=== PATIENT | female | born 1995 | race Caucasian/White ===

== ENCOUNTER 2023-08-22 08:20 | Emergency (ER) | payer SELFPAY ==
[~2023-08-22] VITALS: Ht 152.4 cm; Wt 70.8 kg
[2023-08-22 08:48] VITALS: BP 97/66; PULSE 64; RESP 18; TEMP 98; O2SAT 98
[2023-08-22] MEDS: LIDOCAINE MPF 1% 10 MG/ML VIAL INJ ONE (09:47)
[2023-08-22] MEDS ORDERED: DOXY-745 PO (10:29)
[2023-08-22] MEDS ORDERED: BACTO TP (10:29)
[2023-08-22] MEDS ORDERED: IBUP-2213 PO (10:29)
[2023-08-22] MEDS ORDERED: CHLO3800 TP (10:29)
[2023-08-22] MEDS: BACITRACIN OINT 500 UNITS/GM PKT TP ONE (10:51)
[2023-08-22 11:00] VITALS: BP 101/68
== END 2023-08-22 11:00 | disposition home or self-care (01) ==
LOC: MED 08:20
DX: L02.413 Cutaneous abscess of right upper limb (principal); Z79.899 Other long term (current) drug therapy
CPT/HCPCS: 10060; 99283; J2001